=== PATIENT | female | born 1980 | race Caucasian/White ===

== ENCOUNTER 2023-01-05 15:44 | Emergency (ER) | payer SELFPAY ==
[~2023-01-05] VITALS: Ht 162.6 cm; Wt 113.4 kg
--- NOTE | 2023-01-05 16:01 | NUR ---
RECEIVED CALL FROM [facility] THAT THE US REVEALED RUPTERED APPENDICITIS. REQUESTED A COPY OF US BE FAXED TO ER. DR PELAYO AWARE
[2023-01-05 16:14] VITALS: BP 132/82
[2023-01-05] MEDS ORDERED: MORPHINE SULFATE 4 MG/ML SYR IVP ONE (16:35)
[2023-01-05] MEDS ORDERED: PIPERACILLIN/TAZOBACTAM 3.375 GM in DEXTROSE 5% 50 ML IV ONE (16:35)
[2023-01-05] MEDS ORDERED: ONDANSETRON 4 MG/2 ML VIAL IVP ONE ×2 (16:35→19:50)
[2023-01-05] MEDS ORDERED: NACL 0.9% 1,000 ML IV SCH (16:35)
--- NOTE | 2023-01-05 17:11 | NUR ---
NEVER RECEIVED US RESULTS. PT NOTIFIED STATED THE URGENT CARE WAS NOT GREAT AND HER WAS GOING TO GET THE RESULTS. DR PELAYO AWARE
--- NOTE | 2023-01-05 17:35 | NUR ---
PT BACK FROM CT AND TAKEN TO ER BED 2
--- NOTE | 2023-01-05 17:45 | NUR ---
42 Y/O FEMALE C/O RLQ ABD PAIN PAIN X3 DAYS. PT REPORTS IT STARTED EPIGASTIC PAIN AND NOW RLQ. PT REPORTS SHE WAS AT URGENT CARE, HAD US DONE AND WAS TOLD TO COME TO ER D/T RUPTURED APPENDICITIS. PT REPORTS NAUSEA AND VOMITING. DENIES DIARRHEA/DYSURIA/FEVER/CHILLS. DENIES TAKING ANYTHING FOR PAIN. PT A/O X4 WITH EVEN AND UNLABORED RESPIRATIONS.
[2023-01-05] MEDS ORDERED: MORPHINE SULFATE 10 MG/ML VIAL IM ONE (17:50)
[2023-01-05] MEDS ORDERED: ONDANSETRON 4 MG ODT PO ONE (17:50)
[2023-01-05 18:01] LABS: PROTHROMBIN TIME 9.5 secs (10.8-13.4)
[2023-01-05 18:09] LABS: ALBUMIN 3.8 g/dL (3.4-5.0); ANION GAP 11.1 (8-16); CARBON DIOXIDE 27.9 mmol/L (21-32); CREATININE 0.9 mg/dL (0.6-1.3); TOTAL BILIRUBIN 0.3 mg/dL (0.0-1.0)
[2023-01-05 18:20] LABS: BASOPHILS # (AUTO) 0.1 K/uL (0.00-0.22); BASOPHILS % (AUTO) 0.6 % (0.0-2.0); EOSINOPHILS # (AUTO) 0.1 K/uL (0-0.4); EOSINOPHILS % (AUTO) 1.3 % (0.0-4.0); HEMATOCRIT 42.2 % (36-48); HEMOGLOBIN 13.5 g/dL (12.0-16.0); LYMPHOCYTES # (AUTO) 2.9 K/uL (2.5-16.5); LYMPHOCYTES % (AUTO) 26.4 % (20.5-51.1); MEAN CORPUSCULAR HEMOGLOBIN 28 pg (27-31); MEAN CORPUSCULAR HGB CONC 32 g/dL (33-37); MEAN CORPUSCULAR VOLUME 87.1 fL (80-94); MONOCYTES # (AUTO) 0.5 K/uL (0.8-1.0); MONOCYTES % (AUTO) 4.2 % (1.7-9.3); NEUTROPHILS # (AUTO) 7.4 K/uL (1.8-7.7); NEUTROPHILS % (AUTO) 67.5 % (42.2-75.2); PLATELET COUNT (AUTO) 387 K/uL (140-450); RED BLOOD CELL COUNT(AUTO) 4.85 MIL/uL (4.20-5.40); RED CELL DISTRIBUTION WIDTH 15.4 % (11.6-13.7)
[2023-01-05] MEDS ORDERED: fentaNYL citrate 0.05 MG/ML VIAL IVP ONE (19:00)
--- NOTE | 2023-01-05 19:04 | NUR ---
PT REPORTS ZERO RELIEF FROM MORPHINE AND IS REQUESTING PAIN MEDS PRIOR TO US. DR PELAYO AWARE AND ORDERED FENTANYL. PT REFUSING. DR PELAYO AWARE.
--- NOTE | 2023-01-05 19:19 | NUR ---
US AT BEDSIDE
--- NOTE | 2023-01-05 19:25 | NUR ---
REPORT GIVEN TO ALEXX MOLINA. TRANSFER OF CARE AT THIS TIME. Addendum: 01/05/23 at 1933 by [facility] ENDORSED TO GOLF TECHNICIAN THAT IV FLUIDS &ANTIBIOTICS WERE NOT STARTED D/T NOT HAVING IV, HOWEVER ONE IS NOW IN PLACE. DR PELAYO AWARE THAT LAB IS UNABLE TO PULL BLOOD CULTURES. DR CURRIE STATED TO START ANTIBIOTICS WITHOUT CULTURES
--- NOTE | 2023-01-05 19:30 | NUR ---
Patient received on bed sitting and awake. Alert and oriented x4. No acute distress. Respirations even and unlabored.
[2023-01-05] MEDS ORDERED: PIPERACILLIN/TAZOBACTAM 3.375 GM VIAL IV ONE (19:41)
[2023-01-05] MEDS ORDERED: MORPHINE SULFATE 10 MG/ML VIAL IVP ONE (19:50)
[2023-01-05 20:39] VITALS: BP 150/91
--- NOTE | 2023-01-05 20:39 | NUR ---
Patient does not wish to proceed with medical care recommended by Dr. Martin. Patient given information related to possible complications, up to and including , which could occur as a result of leaving hospital at this time. Patient verbalizes understanding of risks involved leaving against medical advice. Patient has signed AMA form.
== END 2023-01-05 20:39 | disposition left against medical advice (07) ==
LOC: MED 15:44
DX: R10.31 Right lower quadrant pain (principal); Z79.1 Long term (current) use of non-steroidal anti-inflammatories (NSAID); Z79.899 Other long term (current) drug therapy; Z90.49 Acquired absence of other specified parts of digestive tract; Z90.710 Acquired absence of both cervix and uterus
CPT/HCPCS: 36415; 74176; 80053; 81025; 85025; 85610; 85730; 87040; 96365; 96372; 96375; 99285; J2270; J2543; J3010; Q0162